=== PATIENT | female | born 1990 | race Asian ===

== ENCOUNTER 2018-07-25 09:51 | Emergency (ER) | payer OTHER ==
[2018-07-25] MEDS ORDERED: NS 1,000 ML IV ONE (10:39)
--- NOTE | 2018-07-25 11:18 | EDPHY ---
H & P Stated Complaint: Chronic abd pain x 6 months . denies problems w ADL's or eating/drinking Time Seen by Provider: 07/25/18 10:04 HPI/ROS: This GoP0 patient complains of right lower quadrant abdominal pain that is difficult for her to describe. She seems to be describing a cramping, aching sensation that is intermittent lasting anywhere from 1 hr to a few days at a time over the past 6 months. It has never gotten any worse but simply has not resolved. Peak intensity is 5/10 currently she denies having any pain. She does not feel there is an association with timing of her eating or what she is eating. She has noticed any other associated GI symptoms. She reports that the pain occasionally radiates to her right flank/low back. She has no increased pain with movement or relief with rest. She has not tried any over- the-counter analgesics for her pain. She notes no change in her appetite or bowel habits with this. She is accompanied by her housemate who is also Tibetan. ROS: Constitutional: No high fevers or chills. No significant fatigue. HEENT: No recent URI symptoms or other complaints Pulmonary: No cough shortness of breath. No hemoptysis. Cardiovascular: No chest pain. No heart palpitations or lightheadedness. No lower extremity swelling. Musculoskeletal: Currently no flank or back pain and she at no point has had any midline back pain. GI: She denies bloating. No vomiting. She reports normal bowel movements. : No gross hematuria. No vaginal discharge. Her last menstrual period was normal timing 15 days ago. Integumentary: No skin rash 10 point review of symptoms is performed and otherwise negative with exception of pertinent positives and negatives listed in HPI and ROS Source: Patient, [employer]boat [employer] Inboard Exam Limitations: Language barrier (Patient speaks to bed 10 and Mandarin. Translation via the translation service with Mandarin.) - Personal History LMP (Females 10-55): 15-21 Days Ago - Medical/Surgical History PMH: Appendectomy uncomplicated 2 years ago in [facility] Other PMH: Appendectomy. - Family History Significant Family History: No pertinent family hx - Social History Smoking Status: Unknown if ever smoked Alcohol Use: Rarely Drug Use: None - Physical Exam Exam: General Appearance: Alert, no distress. Eyes: Pupils equal and round no pallor or injection. ENT, Mouth: Mucous membranes moist. Respiratory: There are no retractions, lungs are clear to auscultation. Cardiovascular: Regular rate and rhythm. Gastrointestinal: Normoactive, soft, minimal right lower quadrant tenderness with no guarding or rebound. Back: No midline tenderness. No significant CVA tenderness. Straight leg raise is negative bilaterally. Neurological: GCS 15. She has no sensory motor deficits or lower extremities. Skin: Warm and dry, no rashes. Musculoskeletal: Neck is supple nontender. Extremities are symmetrical, full range of motion. Psychiatric: Mood and affect are normal DIFFERENTIAL DIAGNOSIS: After history and physical exam differential diagnosis was considered for surgical adhesions with chronic intermittent abdominal pain, constipation, urinary tract infection, ectopic , diverticulitis, ureteral stone, ovarian cyst Constitutional: Initial Vital Signs Temperature (C) 37.1 C 07/25/18 10:14 Heart Rate 77 07/25/18 10:14 Respiratory Rate 14 07/25/18 10:14 Blood Pressure 109/70 07/25/18 10:14 O2 Sat (%) 94 07/25/18 10:14 O2 Delivery Mode Room Air Allergies/Adverse Reactions: No Known Allergies Allergy (Unverified 07/25/18 10:30) Home Medications: Medication Instructions Recorded Hyoscyamine Sulfate [Levsin, 0.125 - 0.25 mg SL Q6 PRN #20 tab 07/25/18 Hyomax-Sl 0.125 mg (*)] Medical Decision Making ED Course/Re-evaluation: Studies: POC CBC is normal. POC basic metabolic panel also without significant abnormalities. POC urine dip reveals only trace blood. Urine micro sent and pending Urine test is negative Discussion: Given the chronicity of the patient's symptoms and the fact that there intermittent and was in the right lower quadrant suggesting me that she may have some surgical effusions causing intermittent discomfort associated with mass movements of the bowel 1 or 2 times a day. I counseled regarding this in some detail suggests that she may get some relief from Levsin antispasmodic medication for her bowel. I explained this in some detail described side effects. I also suggested she might try ibuprofen in addition. Encouraged her to stay hydrated as well and follow up with primary care physician-ramy Crooks primary care physician with Dr. Tsai on-call outpatient physician. She also presented a chest x-ray reading which showed a pulmonary nodule from 2018 that recommended imaging follow-up. Explained that given her lack of any pulmonary symptoms currently and the fact that she is a non-smoker it is reasonable for her to follow up with Dr. Tsai to perform further imaging of her chest as an outpatient. - Data Points Laboratory Results: 07/25/18 11:05 POC Sodium 142 mEq/L mEq/L (135-145) POC Potassium 3.8 mEq/L mEq/L (3.3-5.0) POC Chloride 106.0 mEq/L mEq/L (97-110) POC Total CO2 26 mEq/L mEq/L (22-31) POC BUN 14 mg/dL mg/dL (7-23) POC Creatinine 0.9 mg/dL mg/dL (0.6-1.0) POC Glucose 134 mg/dL H mg/dL (70-100) POC Calcium 9.4 mg/dL mg/dL (8.5-10.4) Medications Given: Discontinued Medications Sodium Chloride (Ns) 1,000 mls @ 0 mls/hr IV EDNOW ONE; Wide Open PRN Reason: Protocol Stop: 07/25/18 10:40 Last Admin: 07/25/18 11:47 Dose: Not Given Point of Care Test Results: CBC CBC Collection Date 07/25/18 CBC Collection Time 11:00 WBC 6.81 RBC 4.73 HGB 14.5 HCT 42.5 PLT 205 Neut # 4.78 Neut 70.2 LYMPH # 1.45 LYMPH 21.3 MCV 89.9 Chemistry 07/25/18 11:05 POC Sodium 142 mEq/L mEq/L (135-145) POC Potassium 3.8 mEq/L mEq/L (3.3-5.0) POC Chloride 106.0 mEq/L mEq/L (97-110) POC Total CO2 26 mEq/L mEq/L (22-31) POC BUN 14 mg/dL mg/dL (7-23) POC Creatinine 0.9 mg/dL mg/dL (0.6-1.0) POC Glucose 134 mg/dL H mg/dL (70-100) POC Calcium 9.4 mg/dL mg/dL (8.5-10.4) Urine Collection Date 07/25/18 Collection Time 10:45 HCG Results Negative Urine Dip Collection Date 07/25/18 Collection Time 10:45 Specific Gilbert (1.002-1.030) 1.015 PH (5.0-7.5) 5.5 Leukocytes (Negative) Negative Nitrites (Negative) Negative Protein (Negative) Negative Glucose (Negative) Negative Ketones (Negative) Negative Urobilnogen (0.2-1.0 EU) 0.2 Bilirubin (Negative) Negative Blood (Negative) 1+ Departure - Departure Disposition: Home, Routine, Self-Care Clinical Impression: Lower abdominal pain Condition: Good Instructions: Acute Abdominal Pain (ED) Additional Instructions: Diagnosis: Right lower quadrant intermittent crampy abdominal pain Plan: [id number] mg per 6 hr if needed for pain Drink plenty of fluids Dental massage the area as described if needed Levsin medication-mild sent to the tongue 1 to 2/6 hours if needed for cramping pain. Call Dr. Tsai-primary care physician listed below today to arrange follow-up appointment for 5-7 days for a recheck Also discuss your chest x-ray finding with Dr. Tsai so that he can order further outpatient imaging of her chest. Return emergency department if you develop unbearable pain, vomiting, fevers or other concerns. Referrals: NONE *PRIMARY CARE P,. [Primary Care Provider] - As per Instructions Nelson Vasquez DO [Doctor of Osteopathy] - As per Instructions Prescriptions: Hyoscyamine Sulfate [Levsin, Hyomax-Sl 0.125 mg (*)] 0.125 - 0.25 mg SL Q6 PRN # 20 tab PRN Reason: abdominal cramping
[2018-07-25 12:08] VITALS: BP 96/58
== END 2018-07-25 12:10 | disposition home or self-care (01) ==
LOC: CED 09:51
DX: R10.31 Right lower quadrant pain (principal)
CPT/HCPCS: 80048-ER; 81025-ER; 85025-QW-ER; 99283-ER